=== PATIENT | female | born 1955 | race African-American/Black ===

== ENCOUNTER 2017-12-12 04:05 | Emergency (ER) | payer OTHER ==
[~2017-12-12] VITALS: Ht 157.5 cm; Wt 81.2 kg
[2017-12-12] MEDS: MORPHINE SULFATE 4 MG/ML SYR IVP ONE ×2 (04:07→05:10)
[2017-12-12 04:10] VITALS: BP 132/78
--- NOTE | 2017-12-12 04:10 | NUR ---
PT AMBULATED TO BED 8
--- NOTE | 2017-12-12 04:20 | NUR ---
62/F CAME IN ED, C/O 9/10 RUQ AND EPIGASTRIC PRESSURE, X3 DAYS. PT STATED SHE "ATE ALL KINDS OF FOOD 3 DAYS AGO." PT REPORTS N/V/D X3 DAYS. PT DENIES BLOOD IN VOMIT OR BM. SKIN IS INTACT, PINK/WARM/DRY; AAOX4, PERRL, WITH EVEN AND STEADY GAIT; LUNGS CLEAR BL, BREATHING UNLABORED; HR EVEN AND REGULAR, BL PERIPHERAL PULSES PRESENT; BS HYPOACTIVE X4, ABD SOFT, ROUND, TENDER ON PALPATION OF EPIGASTRIC AND RUQ, DENIES LOWER QUADRANT TENDERNESS; PT DENIES ANY FEVER, CP, SOB, OR COUGH AT THIS TIME; PT STATES 0/10 PAIN AT THIS TIME; VSS; PATIENT POSITIONED FOR COMFORT; HOB ELEVATED; BEDRAILS UP X2; BED DOWN. ER MD DR SMITH AWARE.
[2017-12-12] MEDS ORDERED: NACL 0.9% 1,000 ML IV ONE (04:55)
[2017-12-12] MEDS ORDERED: PANTOPRAZOLE 40 MG INJ VIAL IVP ONE (04:55)
--- NOTE | 2017-12-12 05:10 | NUR ---
PT ATTEMPTED TO COLLECT URINE SAMPLE, UNABLE AT THIS TIME, WILL TRY AGAIN LATER.
[2017-12-12 06:15] LABS: BASOPHILS % (AUTO) 0.2 % (0.0-2.0); EOSINOPHILS % (AUTO) 0.1 % (0.0-4.0); HEMATOCRIT 39.3 % (36-48); HEMOGLOBIN 13.1 g/dL (12.0-16.0); LYMPHOCYTES # (AUTO) 1.5 K/uL (2.5-16.5); LYMPHOCYTES % (AUTO) 14.8 % (20.5-51.1); MEAN CORPUSCULAR HEMOGLOBIN 28 pg (27-31); MEAN CORPUSCULAR HGB CONC 34 g/dL (33-37); MEAN CORPUSCULAR VOLUME 84.6 fL (80-94); MONOCYTES # (AUTO) 0.4 K/uL (0.8-1.0); MONOCYTES % (AUTO) 3.8 % (1.7-9.3); NEUTROPHILS % (AUTO) 81.1 % (42.2-75.2); PLATELET COUNT (AUTO) 311 K/uL (140-450); RED BLOOD CELL COUNT(AUTO) 4.64 MIL/uL (4.20-5.40); RED CELL DISTRIBUTION WIDTH 14.2 % (11.6-13.7); WHITE BLOOD COUNT (AUTO) 9.9 K/uL (4.8-10.8)
--- NOTE | 2017-12-12 06:35 | NUR ---
PT RESTING COMFORTABLY, PT REPORTS DECREASED PAIN, RR EVEN AND UNLABORED. PT ABLE TO COLLECT URINE SAMPLE, SENT TO LAB. ALL NEEDS MET.
--- NOTE | 2017-12-12 07:15 | NUR ---
Pt report given to SERGO AYERS. Transfer of care at this time.
[2017-12-12 07:22] LABS: APPEARANCE,URINE CLEAR (CLEAR); COLOR,URINE YELLOW (YELLOW); PH,URINE 6.5 (5.0-9.0)
[2017-12-12 07:23] LABS: BILIRUBIN,URINE NEGATIVE (NEGATIVE); BLOOD, URINE NEGATIVE (NEGATIVE); LEUKOCYTE ESTERASE ,URINE NEGATIVE (NEGATIVE); NITRITE, URINE NEGATIVE (NEGATIVE); UGLUCOSE NEGATIVE (NEGATIVE)
--- NOTE | 2017-12-12 07:59 | NUR ---
PT COMPLAINING OF RUQ PAIN -NON RADIATING 03/06. DR RUIZ INFORMED, AWAITING ORDERS.
[2017-12-12] MEDS ORDERED: MORPHINE SULFATE 4 MG/ML SYR IVP ONE (08:20)
--- NOTE | 2017-12-12 08:29 | NUR ---
MEDICATED ORDERED, PT C/O GENERALIZED ABD PAIN-NON RADIATING 02/03. FRIEND AT BEDSIDE, REPORTS SHE WILL BE TAKING PT HOME WHEN DISCHARGED. VSS
[2017-12-12 11:05] VITALS: BP 174/83
--- NOTE | 2017-12-12 11:05 | NUR ---
Patient discharged with v/s stable. Written and verbal after care instructions given and explained. Patient alert, oriented and verbalized understanding of instructions. Ambulatory with steady gait. All questions addressed prior to discharge. ID band removed. Patient advised to follow up with PMD. Rx of NORCO, MOTRIN, REGLAN given. Patient educated on indication of medication including possible reaction and side effects. Opportunity to ask questions provided and answered.
[2017-12-12 15:28] LABS: PROTHROMBIN TIME 10.9 secs (10.8-13.4)
[2017-12-12 16:08] LABS: ANION GAP 17.2 (8-16); CARBON DIOXIDE 24.1 mmol/L (21-32); POTASSIUM 3.3 mmol/L (3.5-5.1); TOTAL BILIRUBIN 1.9 mg/dL (0.0-1.0)
== END 2017-12-12 11:05 | disposition home or self-care (01) ==
LOC: MED 04:05
DX: K80.20 Calculus of gallbladder without cholecystitis without obstruction (principal); I10 Essential (primary) hypertension
CPT/HCPCS: 36415; 76705; 80053; 81003; 82150; 82550; 83690; 84484; 85025; 85610; 93005; 96361; 96374; 96375; 96376; 99285; C9113; J2270; Q0092